=== PATIENT | female | born 1990 | race Two or more races ===

== ENCOUNTER 2022-12-13 09:04 | Day surgery (SDC) | payer OTHER ==
[~2022-12-13] VITALS: Ht 170.2 cm; Wt 88.5 kg
[~2022-12-13 09:04] MED LIST: MOUNJARO5 MG/0.5 M SQ; PROTONIX40 MG PO; SPRINTEC 28 DA1 EACH PO
[2022-12-13] MEDS ORDERED: OMEPRAZOLE20 M1 PO (16:31)
== END 2022-12-13 18:25 | disposition home or self-care (01) ==
LOC: CIR.AMB 09:04
PROVIDERS: ATTEND Otolaryngology Otology & Neurotology
DX: C32.1 Malignant neoplasm of supraglottis (principal); R49.0 Dysphonia; Z20.822 Contact with and (suspected) exposure to COVID-19; Z91.013 Allergy to seafood; Z87.891 Personal history of nicotine dependence